=== PATIENT | female | born 1965 | race Caucasian/White ===

== ENCOUNTER 2023-01-13 07:27 | Outpatient (CLI) | payer BC, SELFPAY ==
--- NOTE | ~2023-01-13 | PE_ITS ---
EXAMINATION: PET skull to mid thigh DATE: 01/13/2023 09:32 INDICATION: Malignant neoplasm of tail of pancreas. TECHNIQUE: Blood glucose level was 99 mg/dL. 9.917 mCi of 18-fluorodeoxyglucose (18-FDG) was administ ered i.v. Low dose computed tomography (CT) images were acquired from the base of the brain to the pr oximal thighs for attenuation correction and anatomic localization. Automated exposure control was em ployed. Dose-length product (DLP) was 703 mGy-cm. Positron emission tomography (PET) images were acqu ired in the same distribution. COMPARISON: None FINDINGS: Head/neck: There are no pathologically enlarged lymph nodes. There is a right internal jugular port w ith tip in proximal right atrium. Chest: The lungs demonstrate mild atelectasis. No pleural effusion. The heart size is normal. No gilmer cardial effusion. There is mediastinal and bilateral hilar lymphadenopathy with increased activity. F or example, a right paratracheal node measures 2.5 x 1.6 cm with maximum SUV of 4.2. There is a right breast implant. Abdomen/pelvis/proximal thighs: There are greater than 10 masses in the liver with increased activity . For example, a 3.0 cm mass in right hepatic lobe demonstrates maximum SUV of 6.0. There are changes of cholecystectomy. The pancreas, adrenal glands, and kidneys are normal. There is gastrohepatic, ao rtocaval, and left para-aortic lymphadenopathy with increased activity. There are no dilated loops of bowel. The appendix is normal. There is no free intraperitoneal fluid. IMPRESSION: 1. Liver masses and chest and abdominal lymphadenopathy with increased activity, consistent with meta static disease. Reviewed, dictated and finalized at location A. IMPRESSION: 1. Liver masses and chest and abdominal lymphadenopathy with increased activity , consistent with metastatic disease.
[2023-01-13 07:59] LABS: Glucose Point of Care 99 mg/dl (65-105)
== END 2023-01-13 07:28 | disposition home or self-care (01) ==
PROVIDERS: PCP Family Medicine; Visit Provider Internal Medicine Hematology & Oncology
DX: C25.2 Malignant neoplasm of tail of pancreas (principal)
CPT/HCPCS: 78815; A9552